=== PATIENT | female | born 2000 | race Caucasian/White ===

== ENCOUNTER → 2021-04-11 | Outpatient (CLI) | payer BC ==
--- NOTE | 2021-04-11 14:46 | RAD ---
EXAM: LUMBAR SPINE 3 VIEWS. HISTORY: Back pain. COMPARISON: None. FINDINGS: Alignment is maintained. Vertebral body heights are maintained, and no fractures are identi fied. Intervertebral disc heights are maintained. IMPRESSION: 1. No fracture or clear degenerative change. Electronically signed by: Charlie Munguia MD (04/11/2021 2:44 PM) [id number]
== END ==
LOC: RAD 14:25
PROVIDERS: ATTEND Psychiatry & Neurology Neurology
DX: M54.5 Low back pain (principal)
CPT/HCPCS: 72100

== ENCOUNTER 2021-07-01 13:51 | Emergency (ER) | payer BC ==
[~2021-07-01] VITALS: Ht 160 cm; Wt 98.5 kg
[2021-07-01] MEDS ORDERED: IV NORMAL SALINE 1,000ML 1,000 ML IV SCH (14:15)
[2021-07-01] MEDS ORDERED: ONDANSETRON PF 4 MG/2 ML VIAL. IVP ONE (14:15)
[2021-07-01] MEDS ORDERED: IOHEXOL 300 MG/ML 75 ML VIAL. IV ONE (14:15)
--- NOTE | 2021-07-01 14:24 | PHYS DOC ---
Past History Additional Past Medical Histor: AUTISM Past Surgical History: Tonsillectomy Alcohol Use: None General Adult EDM: Chief Complaint: ABDOMINAL PAIN HPI: HPI: Patient is a 20-year-old female who presents to the emergency department for right upper quadrant pain that is intermittent for 1 month. She states that the pain does radiate to her right flank. She rates her pain 8 out of 10. No treatment prior to arrival. She reports nausea, dysuria and urinary urgency. She denies vomiting, diarrhea, fevers, blood in her stools. Review of Systems: Review of Systems: Constitutional: See HPI GI: See HPI : See HPI Musculoskeletal: See HPI Current Medications: Current Meds: Current Medications Medications (Trade) Dose Ordered Sig/Abida Start Time Stop Time Status Last Admin Dose Admin Iohexol (Omnipaque 300 Mg/ml) 75 ml 1X ONCE 07/01/21 14:15 07/01/21 14:16 DC Ondansetron HCl (Zofran) 4 mg 1X ONCE 07/01/21 14:15 07/01/21 14:16 DC Sodium Chloride 1,000 ml @ 1,000 mls/hr Q1H 07/01/21 14:15 07/01/21 15:14 Allergies: Allergies: Allergies Coded Allergies Type Severity Reaction Last Updated Verified Milk Containing Products Allergy Unknown 07/01/21 Yes Physical Exam: PE: Constitutional: Well developed, well nourished, no acute distress, non-toxic appearance. [] HENT: Normocephalic, atraumatic, bilateral external ears normal, oropharynx moist, no oral exudates, nose normal. [] Eyes: PERRL, EOMI, conjunctiva normal, no discharge. [] Neck: Normal range of motion, no stridor Cardiovascular:Heart rate regular rhythm, no murmur [] Lungs & Thorax: Bilateral breath sounds clear to auscultation [] Abdomen: Bowel sounds normal, soft, right upper quadrant tenderness with palpation, negative Fung sign, no masses, no pulsatile masses. [] Skin: Warm, dry, no erythema, no rash. [] Back: No tenderness, no CVA tenderness. [] Extremities: No tenderness, no cyanosis, no clubbing, ROM intact, no edema. [] Neurologic: Alert and oriented X 3, normal motor function, normal sensory function, no focal deficits noted. [] Psychologic: Affect normal, judgement normal, mood normal. [] Current Patient Data: Labs: Laboratory Tests Test 07/01/21 14:18 07/01/21 14:35 White Blood Count 11.2 x10^3/uL Red Blood Count 4.91 x10^6/uL Hemoglobin 12.3 g/dL Hematocrit 38.7 % Mean Corpuscular Volume 79 fL Mean Corpuscular Hemoglobin 25 pg Mean Corpuscular Hemoglobin Concent 32 g/dL Red Cell Distribution Width 14.8 % Platelet Count 292 x10^3/uL Neutrophils (%) (Auto) 67 % Lymphocytes (%) (Auto) 21 % Monocytes (%) (Auto) 8 % Eosinophils (%) (Auto) 3 % Basophils (%) (Auto) 1 % Neutrophils # (Auto) 7.5 x10^3uL Lymphocytes # (Auto) 2.4 x10^3/uL Monocytes # (Auto) 0.9 x10^3/uL Eosinophils # (Auto) 0.3 x10^3/uL Basophils # (Auto) 0.1 x10^3/uL Urine Collection Type Clean catch Urine Color Yellow Urine Clarity Clear Urine pH 5.5 Urine Specific [place] 1.020 Urine Protein Neg Urine Glucose (UA) Neg mg/dL Urine Ketones (Stick) Neg mg/dL Urine Blood Trace Urine Nitrite Neg Urine Bilirubin Neg Urine Urobilinogen Dipstick 0.2 mg/dL Urine Leukocyte Esterase Neg Urine RBC Occ /HPF Urine WBC 0 /HPF Urine Squamous Epithelial Cells Many /LPF Urine Bacteria 0 /HPF Sodium Level 139 mmol/L Potassium Level 3.6 mmol/L Chloride Level 103 mmol/L Carbon Dioxide Level 25 mmol/L Anion Gap 11 Blood Urea Nitrogen 9 mg/dL Creatinine 0.7 mg/dL Estimated GFR (Cockcroft-Gault) 104.6 BUN/Creatinine Ratio 13 Glucose Level 85 mg/dL Calcium Level 9.6 mg/dL Total Bilirubin 0.3 mg/dL Aspartate Amino Transf (AST/SGOT) 18 U/L Alanine Aminotransferase (ALT/SGPT) 28 U/L Alkaline Phosphatase 67 U/L Total Protein 7.8 g/dL Albumin 3.9 g/dL Albumin/Globulin Ratio 1.0 Lipase 114 U/L Bedside Urine HCG, Qualitative hcg negative Current Medications Medications (Trade) Dose Ordered Sig/Abida Route PRN Reason Start Time Stop Time Status Last Admin Dose Admin Sodium Chloride 1,000 ml @ 1,000 mls/hr Q1H IV 07/01/21 14:15 07/01/21 15:14 07/01/21 14:24 Ondansetron HCl (Zofran) 4 mg 1X ONCE IVP 07/01/21 14:15 07/01/21 14:16 DC 07/01/21 14:24 Iohexol (Omnipaque 300 Mg/ml) 75 ml 1X ONCE IV 07/01/21 14:15 07/01/21 14:16 DC 07/01/21 14:34 Vital Signs: Vital Signs Date Time Temp Pulse Resp B/P (MAP) Pulse Ox O2 Delivery O2 Flow Rate FiO2 07/01/21 14:06 98.3 80 18 128/70 (89) 99 Room Air EKG: EKG: [] Radiology/Procedures: Radiology/Procedures: []PROCEDURE: CT ABD PELV W/ IV CONTRST ONLY EXAM: CT Abdomen and Pelvis with IV contrast CLINICAL HISTORY: RUQ PAIN COMPARISON: none TECHNIQUE: Helical CT of the abdomen and pelvis was performed following the administration of intravenous contrast. Axial, coronal and sagittal reformatted images were generated. PQRS compliance statement - One or more of the following individualized dose reduction techniques were utilized for this study: 1. Automated exposure control 2. Adjustment of the mA and/or kV according to patient size 3. Use of iterative reconstruction technique FINDINGS: Lower Chest: Lung bases are clear. Abdomen and Pelvis: No focal liver lesion. Borderline hepatic hypoattenuation. Gallbladder is normal. No biliary ductal dilatation. Spleen is unremarkable. Adrenal glands are normal. Pancreas is unremarkable. Symmetric nephrograms. No focal renal lesion. No hydronephrosis. No hydroureter. Bladder is unremarkable. Aorta is normal in caliber. No small or large bowel dilatation. Moderate colonic stool content is seen. Appendix is normal. A few mildly prominent right lower quadrant lymph nodes are seen. No abdominal or pelvic ascites. A cystic lesion is seen within the pelvis measuring 10.4 x 8.8 x 9.9 cm, possibly arising from the right adnexa although is seen anterior to the uterus. No discrete fatty, solid or calcified components are seen. Bones: No aggressive osseous lesion is seen. IMPRESSION: 1. Pelvic cystic structure measuring 10.4 cm, possibly arising from the right adnexa. Differential includes ovarian cyst, cystoadenoma/cystadenocarcinoma and peritoneal inclusion cyst. Further evaluation with MRI can be performed and gynecologic evaluation is recommended. 2. Borderline hepatic hypoattenuation, fatty liver. 3. Gallbladder is normal. Electronically signed by: Sanjiv Sher MD (07/01/2021 2:49 PM) [facility] DICTATED AND SIGNED BY: SANJIV SHER MD DATE: 07/01/21 1442 CC: YAMILETH PARKER APRN; KRISTA JONES MD ~MTH0 0 Heart Score: C/O Chest Pain: N/A Risk Factors: Risk Factors: DM, Current or recent (<one month) smoker, HTN, HLP, family history of CAD, obesity. Risk Scores: Score 0 - 3: 2.5% MACE over next 6 weeks - Discharge Home Score 4 - 6: 20.3% MACE over next 6 weeks - Admit for Clinical Observation Score 7 - 10: 72.7% MACE over next 6 weeks - Early Invasive Strategies Course & Med Decision Making: Course & Med Decision Making Pertinent Labs and Imaging studies reviewed. (See chart for details) [] Patient presents to the emergency department for right upper quadrant pain that radiates to her flank. Work-up in the ER consisted of urinalysis, blood work and CT imaging of abdomen and pelvis. Patient was treated with IV fluids and Zofran for her nausea. Patient's blood work and urinalysis was unremarkable. The CT scan of her abdomen and pelvis showed a 10.4 cm pelvic cystic structure. Patient advised to follow-up with [facility] within a week. She was given a referral for [facility] at [facility]. Patient advised to take Tylenol or ibuprofen for her pain. Advised to increase her fluids. I discussed with patient all findings and diagnostic testing as well as the need to follow-up with PCP for further evaluation and treatment or return to the ER if any new or worsening symptoms. Strict return precautions were also discussed at length. Patient voiced understanding and agreement with the plan. Patient is hemodynamically stable at the time of disposition. Dragon Disclaimer: Dragon Disclaimer: This electronic medical record was generated, in whole or in part, using a voice recognition dictation system. Departure Departure: Impression: Primary Impression: Abdominal pain Qualified Codes: R10.11 - Right upper quadrant pain Disposition: HOME / SELF CARE / HOMELESS Condition: GOOD Referrals: KRISTA JONES MD (PCP) DEEPTHI COURTNEY MD Patient Instructions: Abdominal Pain (Nonspecific) Additional Instructions: You were seen in the emergency department for abdominal pain. Your blood work this was unremarkable. The CT scan of your abdomen and pelvis showed a 10.4 cm pelvic cystic-like structure. You will need to follow-up with [facility] regarding this finding. I would advise you to contact the ENVELOPE MACHINE OPERATOR my that was provided for you as you will need to follow-up with them within the week. You can take Tylenol/ibuprofen for your pain. Increase your fluids. Return to the emergency department if you develop worsening of your abdominal pain, intractable nausea or vomiting, high fevers refractory to treatment blood in your stools or vomit or any new or worsening concerns. EMERGENCY DEPARTMENT GENERAL DISCHARGE INSTRUCTIONS Thank you for coming to [facility] (ED) today and trusting us with you care. We trust that you had a positivie experience in our Emergency Department. If you wish to speak to the department management, you may call the director at [phone]. YOUR FOLLOW UP INSTRUCTIONS ARE FOLLOWS: 1. Do you have a private Doctor? If you do not have a private doctor, please ask for a resource list of physicians or clinics that may be able to assist you with follow up care. 2. The Emergency Physician has interpreted your x-rays. The X-Ray specialist will also review them. If there is a change in the findings, you will be notified in 48 hours when at all possible. 3. A lab test or culture has been done, your results will be reviewed and you will be notified if you need a change in treatment. ADDITIONAL INSTRUCTIONS AND INFORMATION: 1. Your care today has been supervised by a physician who is specially trained in emergency care. Many problems require more than one evaluation for a complete diagnosis and treatment. We recommend that you schedule your follow up appointment as recommended to ensure complete treatment of you illness or injury. If you are unable to obtain follow up care and continue to have a problem, or if your condition worsens, we recommend that you return to the ED. 2. We are not able to safely determine your condition over the phone nor are we able to give sound medical advice over the phone. For these safety reasons, if you call for medical advice we will ask you to come to the ED for further evaluation. 3. If you have any questions regarding these discharge instructions please call the ED at [phone]. SAFETY INFORMATION: In the interest of safety, wellness, and injury prevention; we encourage you to wear your sealbelt, if you smoke; quite smoking, and we encourage family to use a protective helmet for bicycling and other sporting events that present an increased risk for head injury. IF YOUR SYMPTOMS WORSEN OR NEW SYMPTOMS DEVELOP, OR YOU HAVE CONCERNS ABOUT YOUR CONDITION; OR IF YOUR CONDITION WORSENS WHILE YOU ARE WAITING FOR YOUR FOLLOW UP APPOINTMENT; EITHER CONTACT YOUR PRIMARY CARE DOCTOR, THE PHYSICIAN WHOSE NAME AND NUMBER YOU WERE GIVEN, OR RETURN TO THE ED IMMEDIATELY. YAMILETH PARKER APRN Jul 01, 2021 14:24
[2021-07-01 14:39] LABS: BASO # 0.1 x10^3/uL (0.0-0.2); BASO % 1 % (0-3); EOS # 0.3 x10^3/uL (0.0-0.7); EOS % 3 % (0-3); HEMATOCRIT 38.7 % (36.0-47.0); HEMOGLOBIN 12.3 g/dL (12.0-15.5); LYMPH # 2.4 x10^3/uL (1.0-4.8); LYMPH % 21 % (24-48); MEAN CORPUSCULAR HEMOGLOBIN 25 pg (25-35); MEAN CORPUSCULAR HGB CONC 32 g/dL (31-37); MEAN CORPUSCULAR VOLUME 79 fL (79-100); MONO # 0.9 x10^3/uL (0.0-1.1); MONO % 8 % (0-9); NEUT # 7.5 x10^3uL (1.8-7.7); NEUT % 67 % (31-73); PLATELET COUNT 292 x10^3/uL (140-400); RED BLOOD COUNT 4.91 x10^6/uL (3.50-5.40); RED CELL DISTRIBUTION WIDTH 14.8 % (11.5-14.5); WHITE BLOOD COUNT 11.2 x10^3/uL (4.0-11.0)
[2021-07-01 14:50] LABS: BACTERIA,URINE 0 /HPF (0-FEW); BILIRUBIN,URINE NEG (NEG); CLARITY,URINE CLEAR; COLOR,URINE YELLOW; GLUCOSE,URINE NEG (NEG); NITRITE,URINE NEG (NEG); RBC,URINE OCC /HPF (0-2); SQUAMOUS EPITHELIAL CELL,UR MANY /LPF; UROBILINOGEN,URINE 0.2 mg/dL (0.2 mg/dL); WBC,URINE 0 /HPF (0-4)
[2021-07-01 14:51] LABS: CALCIUM 9.6 mg/dL (8.5-10.1); CREATININE 0.7 mg/dL (0.6-1.0); GFR 104.6; POTASSIUM 3.6 mmol/L (3.5-5.1)
--- NOTE | 2021-07-01 14:52 | RAD ---
EXAM: CT Abdomen and Pelvis with IV contrast CLINICAL HISTORY: RUQ PAIN COMPARISON: none TECHNIQUE: Helical CT of the abdomen and pelvis was performed following the administration of intrave nous contrast. Axial, coronal and sagittal reformatted images were generated. PQRS compliance statement - One or more of the following individualized dose reduction techniques wer e utilized for this study: 1. Automated exposure control 2. Adjustment of the mA and/or kV according to patient size 3. Use of iterative reconstruction technique FINDINGS: Lower Chest: Lung bases are clear. Abdomen and Pelvis: No focal liver lesion. Borderline hepatic hypoattenuation. Gallbladder is normal. No biliary ductal d ilatation. Spleen is unremarkable. Adrenal glands are normal. Pancreas is unremarkable. Symmetric nep hrograms. No focal renal lesion. No hydronephrosis. No hydroureter. Bladder is unremarkable. Aorta is normal in caliber. No small or large bowel dilatation. Moderate colonic stool content is seen. Appendix is normal. A few mildly prominent right lower quadrant lymph nodes are seen. No abdominal or pelvic ascites. A cystic lesion is seen within the pelvis measuring 10.4 x 8.8 x 9.9 cm, possibly arising from the right adnexa although is seen anterior to the uterus. No discrete fatty , solid or calcified components are seen. Bones: No aggressive osseous lesion is seen. IMPRESSION: 1. Pelvic cystic structure measuring 10.4 cm, possibly arising from the right adnexa. Differential i ncludes ovarian cyst, cystoadenoma/cystadenocarcinoma and peritoneal inclusion cyst. Further evaluati on with MRI can be performed and gynecologic evaluation is recommended. 2. Borderline hepatic hypoattenuation, fatty liver. 3. Gallbladder is normal. Electronically signed by: Sanjiv Morse MD (07/01/2021 2:49 PM) [id number]
[2021-07-01 14:57] LABS: ALBUMIN 3.9 g/dL (3.4-5.0); TOTAL BILIRUBIN 0.3 mg/dL (0.2-1.0); TOTAL PROTEIN 7.8 g/dL (6.4-8.2)
[2021-07-01 15:16] VITALS: BP 114/66
== END 2021-07-01 15:17 | disposition home or self-care (01) ==
LOC: ER 13:51
DX: R10.11 Right upper quadrant pain (principal); R11.0 Nausea; R30.0 Dysuria; R39.15 Urgency of urination; Z91.011 Allergy to milk products
CPT/HCPCS: 36415; 74177; 80053; 81001; 81025; 83690; 85025; 96361; 96374; 99285; J2405; J7030; Q9967

== ENCOUNTER → 2021-07-17 | Outpatient (CLI) | payer BC ==
[2021-07-01 15:16] VITALS: BP 114/66
--- NOTE | 2021-07-17 16:53 | RAD ---
EXAM: Pelvic sonogram. HISTORY: Abnormal CT. Pelvic mass. TECHNIQUE: Sonographic imaging of the pelvis was performed. COMPARISON: CT dated 07/01/2021. FINDINGS: The uterus measures 6.4 x 4.8 x 3.8 cm. The endometrial stripe measures 8 mm in thickness. The left ovary is normal in size and demonstrate normal blood flow. The right ovary is obscured. Ther e is a simple appearing cyst within the pelvis measuring 11.1 x 11.0 x 6.0 cm. No solid lesion compon ent is seen. The adjacent bladder is unremarkable. IMPRESSION: 1. Large simple appearing cystic structure within the pelvis measuring 11.1 cm in maximum dimension. This may be ovarian or paraovarian or peritoneal inclusion cyst. The right ovary is not seen. 2. Unremarkable uterus and left ovary. Electronically signed by: Eve Fernandez MD (07/17/2021 4:50 PM) [id number]
== END ==
LOC: US 15:49
PROVIDERS: ATTEND Obstetrics & Gynecology
DX: R19.00 Intra-abdominal and pelvic swelling, mass and lump, unspecified site (principal); R93.89 Abnormal findings on diagnostic imaging of other specified body structures
CPT/HCPCS: 76856

== ENCOUNTER → 2021-08-29 | Outpatient (CLI) | payer BC ==
--- NOTE | 2021-08-29 12:10 | RAD ---
EXAM: Abdomen sonogram. HISTORY: Pain. TECHNIQUE: Sonographic imaging of the abdomen was performed. COMPARISON: CT dated 07/01/2021. FINDINGS: The liver is normal in size. There is hepatic steatosis. No focal hepatic lesion is seen. T he gallbladder is unremarkable. The common bile duct is normal in caliber. The right kidney is unrema rkable. The aorta, inferior vena cava and pancreas are obscured due to bowel gas. IMPRESSION: 1. Hepatic steatosis. 2. Obscured midline structures due to bowel gas. 3. No acute sonographic finding. Electronically signed by: Eve Fernandez MD (08/29/2021 12:08 PM) [id number]
== END ==
LOC: US 10:50
PROVIDERS: ATTEND Family Medicine
DX: K76.0 Fatty (change of) liver, not elsewhere classified (principal); R10.11 Right upper quadrant pain
CPT/HCPCS: 76705

== ENCOUNTER → 2021-09-06 | Outpatient (CLI) | payer BC ==
[~2021-09-06] VITALS: Ht 172.7 cm; Wt 95.3 kg
[~2021-09-06] MED LIST: SINCALIDE 1.91 MCG in IV NORMAL SALINE 50ML 30 ML IV ONE
--- NOTE | 2021-09-06 12:45 | RAD ---
HEPATOBILIARY SCAN WITH EJECTION FRACTION 09/06/2021 12:42 PM History: Reason: ABDOMEN PAIN / Spl. Instructions: / History: Procedure: Serial static images are obtained of the liver and biliary system in the frontal projectio n following IV administration of 5.2 mCi of Technetium 99m Choletec. After filling of the gallbladd er, 1. mcg of sincalide were infused over 30 minutes and dynamic imaging continued over this period. The gallbladder ejection fraction was calculated. Findings: There is prompt hepatic clearance of tracer from the blood pool. There is homogeneous distr ibution throughout the liver. The gallbladder ejection fraction measures 79% (normal gallbladder EF is 35% or greater). IMPRESSION: 1. The cystic duct and common bile duct are patent. Negative for acute cholecystitis. 2. The gallbladder ejection fraction is normal measuring 79% Electronically signed by: Fareed Bonilla MD (09/06/2021 12:43 PM) [id number]
== END ==
LOC: NM 09:41
PROVIDERS: ATTEND Internal Medicine
DX: R10.11 Right upper quadrant pain (principal)
CPT/HCPCS: 78227; A9537; J2805